=== PATIENT | female | born 1965 | race Two or more races ===

== ENCOUNTER → 2025-01-07 | Outpatient (CLI) | payer OTHER, SELFPAY ==
--- NOTE | 2025-01-07 08:00 | XR_ITS ---
Examination: Screening digital mammography, bilateral Computer aided detection 3-D breast Tomosynthesis, bilateral Date and time of exam: 01/07/2025, 7:36 AM Comparisons: January 2019 Indications: Screening Technique: Nonmagnified MLO, CC views of the breasts to been obtained, reconstructed from 3-D Tomosynthesis images. R2 computer aided detection program utilized for evaluation of suspicious masses and/or abnormal calcifications. 3-D Tomosynthesis images obtained. Technologist: Findings: The breasts are heterogeneously dense, which may obscure small masses. Focal asymmetry 12:00 right breast with associated architectural distortion. Asymmetry posterior outer left breast seen on the CC view at approximately the 3:00. Otherwise, no evidence of abnormal masses or suspicious calcifications. Impression: Right breast focal asymmetry as above. Left breast asymmetry as above. Spot compression views and possible ultrasound evaluation recommended. BI-RADS category 0: Incomplete assessment; need additional imaging evaluation
== END | disposition home or self-care (01) ==
LOC: CDIM 07:27
PROVIDERS: Referring Provider Physician Assistant Medical; Visit Provider Physician Assistant Medical
DX: Z12.31 Encounter for screening mammogram for malignant neoplasm of breast (principal); R92.8 Other abnormal and inconclusive findings on diagnostic imaging of breast; N64.89 Other specified disorders of breast
CPT/HCPCS: 77063; 77067

== ENCOUNTER → 2025-02-13 | Outpatient (CLI) | payer OTHER, SELFPAY ==
--- NOTE | 2025-02-13 13:00 | XR_ITS ---
Examination: Diagnostic digital mammography, bilateral Computer aided detection 3-D breast Tomosynthesis, bilateral Date and time of exam: February 13, 2025 1241 hours INDICATIONS: Mammogram January 07, 2025 suspicious focal asymmetry 12:00 position right breast, asymmetry posterior outer left breast Technique: Nonmagnified MLO, CC views of the breasts to been obtained, reconstructed from 3-D Tomosynthesis images. R2 computer aided detection program utilized for evaluation of suspicious masses and/or abnormal calcifications. 3-D Tomosynthesis images obtained. Findings: Pulmonary mass spiculated margins, 31 mm, 12:00 position right breast with satellite 8mm nodule 9 mm nodule outer left breast not clearly depicted on the corresponding MLO view Scattered areas of fibroglandular density Impression: BI-RADS Category 4: Suspicious for malignancy Suspicious mass 12:00 position right breast, suspicious solid nodule right breast Biopsy of these nodules is needed to exclude breast carcinoma Both of these nodules are amenable to ultrasound-guided breast biopsy, recommend bilateral breast sonography follow-up Recommend left breast sonography follow-up to further assess 9 mm nodule outer left breast on the current CC view.
== END | disposition home or self-care (01) ==
PROVIDERS: PCP Physician Assistant Medical; Referring Provider Physician Assistant Medical; Visit Provider Physician Assistant Medical
DX: R92.343 Mammographic extreme density, bilateral breasts (principal); N63.15 Unspecified lump in the right breast, overlapping quadrants; N63.10 Unspecified lump in the right breast, unspecified quadrant
CPT/HCPCS: 77062; 77066; G0279

== ENCOUNTER → 2025-03-10 | Outpatient (CLI) | payer OTHER, SELFPAY ==
--- NOTE | 2025-03-10 11:30 | XR_ITS ---
Examination: Breast ultrasound complete, bilateral Date and time of exam: March 10, 2025 1120 hours Comparison February 24, 2018 INDICATIONS: Bilateral breast pain 8 months Technique: Real-time grayscale ultrasonographic imaging bilateral breasts, including all 4 quadrants as well as nipple retroareolar and axillary regions. Findings: Sonographic images right breast 12:00 nodule taller than wide indistinct margins 17 x 12 x 12 mm Retroareolar nodule indistinct margins 7 x 6 x 13 mm Sonographic images left breast No cystic or solid mass IMPRESSION: BI-RADS Category 4: Suspicious for malignancy Suspicious nodules right breast 12:00 and retroareolar, biopsy both nodules is needed to exclude breast carcinoma, these nodules are amenable to ultrasound-guided breast biopsy for diagnosis
== END | disposition home or self-care (01) ==
LOC: CDIM 11:01
PROVIDERS: PCP Physician Assistant Medical; Referring Provider Physician Assistant Medical; Visit Provider Physician Assistant Medical
DX: R92.8 Other abnormal and inconclusive findings on diagnostic imaging of breast (principal); N63.15 Unspecified lump in the right breast, overlapping quadrants
CPT/HCPCS: 76641

== ENCOUNTER → 2025-04-01 | Outpatient (CLI) | payer OTHER, SELFPAY ==
[2025-03-30 15:24] LABS: Basophils % (Auto) 0 % (0-2.5); Eosinophils # (Auto) 0.1 Thou/mm3 (0.0-0.5); Eosinophils % (Auto) 2 % (0-10); Hematocrit 37.5 % (36.0-46.0); Hemoglobin 12.3 g/dL (12.0-16.0); Immature Granulocytes % (Auto) 0 % (0-0); Immature Granulocytes Auto 0.02 Thou/mm3 (0.00-0.00); Lymphocytes % (Auto) 30 % (10-50); Mean Corpuscular HGB Conc 32.8 g/dl (31.0-37.0); Mean Corpuscular Hemoglobin 29.2 pg (25.0-35.0); Mean Corpuscular Volume 89 fL (80-100); Monocytes # (Auto) 0.5 Thou/mm3 (0.0-0.8); Monocytes % (Auto) 8 % (0-12); Neutrophils # (Auto) 3.9 Thou/mm3 (1.8-7.7); Neutrophils % (Auto) 60 % (37-80); Nucleated Red Blood Cell % 0 /100 WBC (0); Platelet Count 212 Thou/mm3 (140-440); RDW Standard Deviation 42.4 fL (36.4-46.3); Red Blood Count 4.21 Miln/mm3 (4.00-5.20); White Blood Count 6.6 Thou/mm3 (3.6-11.0)
[2025-03-30 15:51] LABS: INR 0.9 (0.9-1.3); Partial Thromboplastin Time 25.9 Seconds (22.0-36.0); Prothrombin Time 10.2 Seconds (9.0-12.2)
--- NOTE | 2025-04-01 08:30 | XR_ITS ---
Examinations: Ultrasound-guided percutaneous breast biopsy, right breast 12:00 nodule Right breast sonography limited INDICATIONS: Right breast sonogram 06/10/2025 BI-RADS 4 suspicious nodule 12:00 position right breast. Exam date and time: April 01, 2025 0918 hours. Informed consent provided. Technique: A timeout was completed verifying correct patient, procedure, site, positioning, and special equipment if applicable Informed consent provided. The patient was placed in a supine position for the breast biopsy. Sonographic images of the breast were performed for localization of the suspicious nodule The patient's breast was prepped and draped in sterile fashion. Maximum sterile barrier technique, hand hygiene, ultrasound sterile technique 1% lidocaine was used to anesthetize the skin and breast adjacent to the suspicious nodule. Utilizing ultrasonographic guidance, 8 core biopsies were obtained of the suspicious nodule utilizing an 18-gauge BioPince needle. The specimens appears satisfactory. US guided breast biopsy marker placement. Estimated blood loss 3 cc. The patient tolerated the procedure well and there were no complications. Impression: Successful ultrasound-guided percutaneous breast biopsy, 12:00 nodule. Ultrasound guided breast biopsy marker placement.
--- NOTE | 2025-04-01 08:30 | XR_ITS ---
Examinations: Ultrasound-guided percutaneous breast biopsy, right breast retroareolar nodule Right breast sonography limited INDICATIONS: Right breast sonogram 06/10/2025 BI-RADS 4 suspicious nodule retroareolar region right breast. Exam date and time: April 01, 2025 0919 hours. Informed consent provided. Technique: A timeout was completed verifying correct patient, procedure, site, positioning, and special equipment if applicable Informed consent provided. The patient was placed in a supine position for the breast biopsy. Sonographic images of the breast were performed for localization of the suspicious nodule The patient's breast was prepped and draped in sterile fashion. Maximum sterile barrier technique, hand hygiene, ultrasound sterile technique 1% lidocaine was used to anesthetize the skin and breast adjacent to the suspicious nodule. Utilizing ultrasonographic guidance, 8 core biopsies were obtained of the suspicious nodule utilizing an 18-gauge BioPince needle. The specimens appears satisfactory. US guided breast biopsy marker placement. Estimated blood loss 3 cc. The patient tolerated the procedure well and there were no complications. Impression: Successful ultrasound-guided percutaneous breast biopsy, right breast retroareolar nodule. Ultrasound guided breast biopsy marker placement.
== END | disposition home or self-care (01) ==
LOC: SDIM 08:10
PROVIDERS: Radiology Diagnostic Radiology; PCP Physician Assistant Medical; Referring Provider Physician Assistant Medical; Visit Provider Physician Assistant Medical
DX: C50.011 Malignant neoplasm of nipple and areola, right female breast (principal); C50.811 Malignant neoplasm of overlapping sites of right female breast; Z17.0 Estrogen receptor positive status [ER+]; Z17.22 Progesterone receptor negative status; Z17.32 Human epidermal growth factor receptor 2 negative status; Z01.812 Encounter for preprocedural laboratory examination
CPT/HCPCS: 19083; 19084; 36415; 85025; 85610; 85730; A4648; A4649

== ENCOUNTER 2025-05-27 08:01 | Outpatient (RCR) | payer MEDICAID, SELFPAY ==
--- NOTE | 2025-05-27 09:32 | CTCCONSULT_ITS ---
[facility] [address] [place], [place] [address] Consultation Note Date: 05/27/2025 MR#: [id number] Name: LATISHA COWAN : 1965 Dx: C50.111 Malignant neoplasm of central portion of right female breast Referring physician. NIDHI Pate /[facility] Reason for consultation .Patient with recent diagnosis of right breast CA referred to the cancer treatment center. History of Present Illness: Patient is a 60-year-old lady felt lump in right breast and patient states that she already saw Dr. Dorman regarding surgery mammogram 01/07/2025 revealed asymmetry right breast 12:00. Ultrasound 03/10/2025 revealed suspicious nodules right breast at 12:00 and right retroareolar area, 17 x 12 x 12 mm and 7 x 6 x 13 mm respectively. Ultrasound-guided biopsy 04/01/2025 revealed invasive lobular carcinoma largest focus 0.8 cm 12:00 and in the right retroareolar area invasive lobular carcinoma largest focus 0.6 cm. ER positive CA negative HER2/sita negative Ki67 low at 5 to 8%. Patient has already seen Dr. Dorman general surgeon. Patient now referred to the cancer center. Past Medical History: Hypertension fatty liver history of valley fever Meds. Hydrochlorothiazide Allergies none to meds Social History: Patient currently unemployed last menses 2019 2 pregnancies 1 lives with adult offspring in [place]. Denies smoking drinking Family history. 1 sister at ovarian cancer age 60 Brother colon cancer Review of Systems: Has felt the breast lump sleep problem difficulty hearing anxiety Physical Exam: General: Well-appearing lady no acute distress HEENT: Atraumatic normocephalic extraocular is intact no oral lesion no cervical or cervical adenopathy CV: Breast not examined . Chest clear to auscultation heart regular rate and rhythm ABD: Soft no organomegaly or tenderness EXT: No signs of clubbing or edema Assessment:#1 Multicentric. lobular right breast CA at 12:00 and retroareolar area. ER positive CA negative HER2 negative Ki-67 5 to 8% #2. Has appointment with medical oncologist Dr. Marcus in a few days. #3. Has already seen Dr. Dorman general surgeon, regarding breast surgery #4. I gave patient follow-up after all the specialists seen patient for comprehensive recommendation of treatment plan. #5. Thank you very much for allowing us to evaluate and manage this patient. [facility] network: NIDHI Pate Electronically signed by: Jad Dwyer MD, ADDI 05/27/2025 9:29 AM
== END 2025-05-28 23:59 | disposition home or self-care (01) ==
LOC: SCTC 08:01
PROVIDERS: PCP Physician Assistant Medical; Referring Provider Physician Assistant Medical; Visit Provider Radiology Therapeutic Radiology
DX: C50.811 Malignant neoplasm of overlapping sites of right female breast (principal); C50.011 Malignant neoplasm of nipple and areola, right female breast; Z17.0 Estrogen receptor positive status [ER+]; Z17.22 Progesterone receptor negative status; Z17.32 Human epidermal growth factor receptor 2 negative status
CPT/HCPCS: 99213; G0463

== ENCOUNTER 2025-06-09 16:12 | Inpatient (IN) | payer MEDICAID, SELFPAY ==
--- NOTE | 2025-06-08 07:00 | EKG_ITS ---
[facility] Test Date: 2025-06-08 Pat Name: LATISHA COWAN Department: Room: - Gender: Female Cat Sitter: LALITO : 1965 Requested By: Rafael Crowder Order Number: [id number] Reading MD: Rafael Crowder Measurements Intervals Burns Rate: 63 P: 38 OH: 168 QRS: 8 QRSD: 101 T: 19 QT: 424 QTc: 437 Interpretive Statements SINUS RHYTHM LOW QRS VOLTAGE IN PRECORDIAL LEADS [QRS DEFLECTION < 1.0 mV IN CHEST LEADS] INCOMPLETE RIGHT BUNDLE BRANCH BLOCK [90+ ms QRS DURATION, TERMINAL R IN V1/V2, 40+ ms S IN I/aVL/V4/V5/V6] No previous ECG available for comparison /store/S0/[id number]/[id number].pdf
[2025-06-08 08:37] VITALS: BMI 41.6
[2025-06-08 09:31] LABS: Basophils # (Auto) 0.0 Thou/mm3 (0.0-0.2); Basophils % (Auto) 0 % (0-2.5); Eosinophils # (Auto) 0.2 Thou/mm3 (0.0-0.5); Eosinophils % (Auto) 2 % (0-10); Hematocrit 37.9 % (36.0-46.0); Hemoglobin 12.6 g/dL (12.0-16.0); Immature Granulocytes Auto 0.02 Thou/mm3 (0.00-0.00); Lymphocytes # (Auto) 2.1 Thou/mm3 (1.0-4.8); Lymphocytes % (Auto) 30 % (10-50); Mean Corpuscular HGB Conc 33.2 g/dl (31.0-37.0); Mean Corpuscular Hemoglobin 29.5 pg (25.0-35.0); Mean Corpuscular Volume 89 fL (80-100); Monocytes # (Auto) 0.5 Thou/mm3 (0.0-0.8); Monocytes % (Auto) 8 % (0-12); Neutrophils # (Auto) 4.1 Thou/mm3 (1.8-7.7); Neutrophils % (Auto) 59 % (37-80); Nucleated Red Blood Cell # 0.00 Thou/mm3 (0.00-0.00); Nucleated Red Blood Cell % 0 /100 WBC (0); Platelet Count 189 Thou/mm3 (140-440); RDW Standard Deviation 41.9 fL (36.4-46.3); Red Blood Count 4.27 Miln/mm3 (4.00-5.20); White Blood Count 6.9 Thou/mm3 (3.6-11.0)
[2025-06-08 09:38] LABS: Alanine Aminotransferase 47 U/L (10-49); Albumin, Serum 4.3 gm/dL (3.4-4.8); Albumin/Globulin Ratio 1.7 (1.2-2.2); Alkaline Phosphatase 99 U/L (46-116); Anion Gap 8 (7-16); Aspartate Amino Transferase 35 U/L (0-34); BUN/Creatinine Ratio 15 Ratio (12-20); Bilirubin,Total 0.4 mg/dL (0.3-1.2); Blood Urea Nitrogen 12 mg/dL (9-23); Calcium 9.8 mg/dL (8.3-10.6); Calcium (Corrected) 9.8 mg/dL (8.5-10.1); Carbon Dioxide 29.1 mMol/L (20.0-31.0); Chloride 105 mMol/L (98-107); Creatinine (Component) 0.8 mg/dL (0.6-1.3); Estimated Creatinine Clearance 87.5 mL/min (>60); Globulin 2.5 gm/dL (2.3-3.5); Glucose 99 mg/dL (74-106); Osmolality,Calculated 282 (275-295); Potassium 4.1 mMol/L (3.4-5.1); Sodium 142 mMol/L (136-145); Total Protein 6.8 gm/dL (5.7-8.2); eGFR > 60 See Note
[2025-06-08 11:16] LABS: INR 0.9 (0.9-1.3); Partial Thromboplastin Time 25.4 Seconds (22.0-36.0); Prothrombin Time 10.0 Seconds (9.0-12.2)
--- NOTE | 2025-06-08 14:41 | SUR.PREOP ---
Pt notified to come in tomorrow at 0630.
[2025-06-09] VITALS (17 sets, daily range): BP systolic 114–162; BP diastolic 55–82; PULSE 62–72; RESP 17–23; TEMP 36.1–36.7; O2SAT 91–98; BMI 43.9
[2025-06-09] MEDS: RINGERS LACTATED 1000 ML 1,000 ML 20 ML IV (07:28)
--- NOTE | 2025-06-09 09:00 | XR_ITS ---
Examination: Nuclear medicine [place] lymph node study Nuclear medicine lymph glands imaging Date and time: June 09, 2025 0900 hours INDICATIONS: Preop right breast lumpectomy 6 and lymph node dissection today TECHNIQUE AND FINDINGS: Informed consent provided. Timeout performed. Skin prepped over the right breast and sterile drape applied hand hygiene 1% lidocaine administered for local anesthesia subareolar Subareolar introduction 1.8 mCi technetium 99m filtered sulfur colloid No complications No bleeding No imaging obtained IMPRESSION: Successful sentinel lymph node study as above, right breast
--- NOTE | 2025-06-09 09:00 | XR_ITS ---
Examination: Ultrasound-guided needle localization right breast nodule 12:00 position, retroareolar position, right breast sonography limited Date and time: June 09, 2025 0927 hours INDICATIONS: Biopsy positive for carcinoma lesions right breast 12:00 and retroareolar April 01, 2025, preop surgical excision TECHNIQUE AND FINDINGS: Sonographic images right breast Skin prepped over the breast and sterile drape applied hand hygiene ultrasound sterile technique Informed consent provided. Timeout performed. 1% lidocaine administered for local anesthesia at both the 12:00 and retroareolar sites Utilizing ultrasonographic guidance 5 cm Kopan's needle was placed adjacent to the right breast 12:00 and right breast retroareolar lesions 1 cc methylene blue injected at both sites On both sides of acquired advanced and needles withdrawn Estimated blood loss 2 cc Patient stable condition at completion procedure is IMPRESSION: Successful ultrasound-guided needle localization right breast 12:00 and retroareolar nodules
--- NOTE | 2025-06-09 11:05 | ESHP_ITS ---
RE: LATISHA COWAN : 1965 DATE OF ADMISSION: 06/09/2025 DATE OF SURGERY: 06/09/2025 HISTORY OF PRESENT ILLNESS: This patient is a 60-year-old female who is scheduled for treatment of the right breast lobular carcinoma. The patient was in her usual health until a year ago when she noticed some fullness on the right breast on what she described as a lump. It became painful and the patient underwent biopsy of this right breast lesion. In the ultrasound, the patient was found to have 2 lumps, one at 12 o'clock position and the other one at retroareolar position. Both of these were biopsied and clipped by the radiologist. The report came back as infiltrating lobular carcinoma x2. The patient was seen in the clinic on 05/05/2025 for definitive treatment. The patient denies any history of breast cancer in the family. Her menstrual period stopped in 2020. PAST SURGICAL HISTORY: The patient's surgery revealed one section. PHYSICAL EXAMINATION: GENERAL: A female who speaks Tajik. She is obese and is about 5 feet 2 inches tall and weighing 236 pounds with a BMI of 43.2. VITAL SIGNS: Temperatures of 97.9, pulse 75, BP was 150/71. HEENT: Examination of her head normal. Eyes, ears, nose, and throat normal. CHEST: Good breath sounds. BREASTS: Palpation of the breast showed some fullness over the right side at the upper portion. These lumps were diffuse and not clear-cut and could not be defined by palpation. Right axilla was negative. Left breast appeared normal. IMAGING: I reviewed the mammogram and the ultrasound, which showed 2 lesions on the right breast. Biopsy of both the lesions showed infiltrating lobular carcinoma, which are hormone positive for both estrogen and progesterone. IMPRESSION: 1. Infiltrating lobular carcinoma of the right breast with multifocal. 2. Morbid obesity. 3. Hypertension. COURSE OF ACTION: I advised the patient that she has to undergo surgery to remove this lump and then being evaluated for radiation therapy. The patient's breast is fairly large and there will be considerable amount of breast left behind even after surgery. In addition to radiation therapy, the patient may even consider having chemotherapy if there are criteria that are met. The risks of the procedure including potential complications like hematoma and seroma and wound infection were explained to the patient. The patient also will undergo sentinel node biopsy to look for any involvement in the axilla and she is agreeable and will proceed with surgery today. DT: 09:49:49 TT: 11:03:00 Ref: [id number] - TID: [id number]
--- NOTE | 2025-06-09 11:58 | XR_ITS ---
Examination: Mammogram breast tissue specimen x2 TECHNIQUE: 2 mammographic breast tissue specimens obtained Date and time: June 09, 2025 1221 hours INDICATIONS: Postop surgical excision of BI-RADS 4 suspicious nodules 12:00 and retroareolar region right breast with pre-op needle localizations this morning FINDINGS: Breast tissue specimens demonstrate 2 separate breast markers at the site of the localized lesions with margins around these 2 breast markers IMPRESSION: Tissue specimens demonstrating both localized biopsy positive for carcinoma lesions with margins
--- NOTE | 2025-06-09 13:15 | SUR.PHASEI ---
pt received from OR in recovery bay 2. pt asleep but responds to voice, breathing unlabored on oxymask 10l. v/s stable. pt dressing to right breast cdi. allison drain in place. report received from Dr. Mcgovern and Amor MENDOZA.
[2025-06-09] MEDS: fentaNYL CIT INJ 50 mCg/ML AMP 2ML 25 MCG IVP ×3 (14:06→14:33)
[2025-06-09] MEDS: ONDANSETRON INJ 2 MG/ML INJ 2 ML 4 MG IVP (14:35)
--- NOTE | 2025-06-09 14:44 | SUR.PHASEII ---
pt able to tolerate oral fluids without difficulty swallowing or nausea/vomiting.
--- NOTE | 2025-06-09 16:10 | SUR.PHASEII ---
pt asleep but responds to voice, breathing unlabored on nc 2l. v/s stable. pt dressing to right breast cdi. allison drain emptied 30 cc. report called to Carrie MENDOZA. pt will be transferred to room at this time.
--- NOTE | 2025-06-09 17:52 | PD.SUROPNT ---
Date of Procedure 06/09/25 Pre Op Diagnosis Infiltrating lobular carcinoma of the right breast at 12 o'clock position and at retroareolar region Post Op Diagnosis Same Procedure Guidewire localization and partial mastectomy of the right breast with sentinel node dissection of the right axilla. Findings Patient was found to have 2 large lymph nodes and one of them were showing radioisotope uptake in the axilla. Procedure Description After the patient was sent to the x-ray suite guidewire localization was performed by Dr. Berry using ultrasound guidance. She also had a sentinel node injection performed by him. She was then brought to the operating room and was given endotracheal anesthesia. Right breast and axilla and right upper extremity were all prepped with ChloraPrep solution and draped in a sterile manner. Timeout was performed. I approached the right axilla first for sentinel node biopsy. Using a neoprobe I found some activity at the axilla and I made an incision for about 5 to 6 cm and explored the subcutaneous tissue. I was able to feel a large node measuring at least about 1.5 cm that was showing considerable technetium uptake. This was removed intact by clamping the surrounding structures and tying them with 3-0 chromic. Then another lymph node was also removed but it showed no radioactive isotope and therefore it turned out to be a nonsentinel lymph node. Then a diligent search was made for any additional node in the axilla and none was found. Then I closed the axilla in layers using 3-0 chromic sutures. Then the skin was infiltrated with local anesthesia with half percent Marcaine and then closed with 4-0 Monocryl subcuticular stitch. Then the right breast was approached. 2 guidewires were seen 1 at 12 o'clock position and another 1 in the retroareolar portion. I made a curved incision over the areola on the right breast and dissected out the subcutaneous tissue. Using the guidewire and methylene blue stained tissue I removed the entire upper quadrant of the right breast. I marked the sites with sutures using 3-0 silk for the medial margin and 3-0 Prolene for the superior margin as well as the anterior margin. I sent the specimen down for x-ray which showed that both the lesions have been removed intact and the clips that were used at the biopsy were easily seen in the specimen. There is also considerable amount of normal breast tissue surrounding the cancer which was shown as a dense area on the x-ray. Then bleeding points were controlled with cautery carefully but there was a large cavity. I closed some of the cavity with approximation of the subcutaneous tissue on the left #10 round Mario-Feldman drain and stitch to to the skin with 2-0 silk. At the end dressing was applied with Adaptic and fluff and compression with extra-large breast binder. Patient was returned to recovery room after stable surgical course. Anesthesia GETA and other (General LMA) Pathology / specimen Other (1. [place] lymph node, #2 nonsentinel lymph node, #3 breast cancer specimen with 2 guidewires) Estimated Blood Loss 200 Condition Stable Disposition PACU Surgeon Marii Newman MD Surgical Staff Operation Date: 06/09/25 09:45 Case Staff Anesthesiologist: Sandro Mcgovern RN First Assistant: Natalie Porter
[2025-06-10] VITALS: BP 158/72; RESP 18; TEMP 36.2; O2SAT 94
[2025-06-10 04:00] VITALS: BP 139/73; RESP 18; TEMP 36.2; O2SAT 94
[2025-06-10] MEDS: MORPHINE SULF INJ 10 MG/ML VIAL 5 MG IVP ×2 (05:42→09:54)
[2025-06-10] MEDS: ONDANSETRON INJ 2 MG/ML INJ 2 ML 4 MG IVP (05:43)
[2025-06-10 06:37] LABS: Basophils # (Auto) 0.0 Thou/mm3 (0.0-0.2); Basophils % (Auto) 0 % (0-2.5); Eosinophils # (Auto) 0.0 Thou/mm3 (0.0-0.5); Eosinophils % (Auto) 0 % (0-10); Hematocrit 35.7 % (36.0-46.0); Hemoglobin 11.9 g/dL (12.0-16.0); Immature Granulocytes Auto 0.07 Thou/mm3 (0.00-0.00); Lymphocytes # (Auto) 1.1 Thou/mm3 (1.0-4.8); Lymphocytes % (Auto) 9 % (10-50); Mean Corpuscular HGB Conc 33.3 g/dl (31.0-37.0); Mean Corpuscular Hemoglobin 29.8 pg (25.0-35.0); Mean Corpuscular Volume 89 fL (80-100); Monocytes # (Auto) 0.5 Thou/mm3 (0.0-0.8); Monocytes % (Auto) 4 % (0-12); Neutrophils # (Auto) 10.8 Thou/mm3 (1.8-7.7); Neutrophils % (Auto) 86 % (37-80); Nucleated Red Blood Cell # 0.00 Thou/mm3 (0.00-0.00); Nucleated Red Blood Cell % 0 /100 WBC (0); Platelet Count 186 Thou/mm3 (140-440); RDW Standard Deviation 42.8 fL (36.4-46.3); Red Blood Count 4.00 Miln/mm3 (4.00-5.20); White Blood Count 12.5 Thou/mm3 (3.6-11.0)
[2025-06-10 08:00] VITALS: BP 136/73; PULSE 65; RESP 17; TEMP 36.3; O2SAT 93
[2025-06-10 08:39] VITALS: RESP 18; O2SAT 96
[2025-06-10 12:00] VITALS: BP 130/57; PULSE 64; RESP 18; TEMP 36.6; O2SAT 93
--- NOTE | 2025-06-10 12:43 | PD.SURPROG ---
Documentation for date of: 06/10/25 Subjective Subjective Narrative: Patient is feeling better today with good pain control. She is draining minimal amount of fluid in the Mario-Feldman. Exam Vital Signs Temp Pulse Resp BP Pulse Ox O2 Del Method O2 Flow Rate 97.8 F 64 18 130/57 L 93 L Room Air 2 06/10/25 12:00 06/10/25 12:00 06/10/25 12:00 06/10/25 12:00 06/10/25 12:06/10/25 12:06/10/25 08:00 Her vital signs are normal Routine Chest/Breast/Axilla Exam Comments: The dressing is intact. Results Results: Laboratory Laboratory Narrative: Patient's laboratory workup showed stable hemoglobin and mild leukocytosis Assessment & Plan Assessment Additional comments: Impression: Stable postoperative course following partial mastectomy Plan Plan: Patient was kept here for the pain control during the night for overnight observation. Patient will be discharged today. PROCEDURES: Procedures Guidewire localization and partial mastectomy of the right breast with sentinel node dissection of the right axilla.
== END 2025-06-10 13:41 | disposition home or self-care (01) | DRG 363 ==
LOC: S3SX 16:59
PROVIDERS: Admitting Provider Surgery; PCP Physician Assistant Medical; Referring Provider Surgery; Visit Provider Surgery
PROC: 07B53ZX Excision of Right Axillary Lymphatic, Percutaneous Approach, Diagnostic (ICD-10-PCS; principal; 2025-06-09 09:30)
DX: C50.911 Malignant neoplasm of unspecified site of right female breast (principal); E66.01 Morbid (severe) obesity due to excess calories; I10 Essential (primary) hypertension; Z68.41 Body mass index [BMI] 40.0-44.9, adult
CPT/HCPCS: 36415; 76098; 80053; 85025; 85610; 85730; 93005; A4217; A4648; A4649; A9541; G0378; J0131; J1100; J1885; J2250; J2270; J2405; J2704; J3010; J3490; J7120

== ENCOUNTER 2025-06-11 08:53 | Outpatient (RCR) | payer MEDICAID, SELFPAY ==
--- NOTE | 2025-06-11 10:17 | CTCFLWUP_ITS ---
Patient: LATISHA COWAN : 1965 Page 2 of 4 FOLLOW UP NOTE DATE OF SERVICE: 06/11/2025 NAME: LATISHA COWAN ACCOUNT: [id number] : 1965 AGE: 60 INTERVAL HISTORY: Patient is new for right breast cancer .patient had lumpectomy . she still have drainage tubes. ONCOLOGY HISTORY: DIAGNOSIS: ?CloneDiagnosis? Malignant neoplasm of central portion of right female breast [ICD10] C50.111 DATE OF DIAGNOSIS: 04/01/2025 STAGE/TNM: TREATMENT HISTORY: Care?Plan Start?Date Cycle Day Intent HISTORY OF PRESENT ILLNESS: 60 yr old womrn with new left breats cancer. Lumpectomy report not awailable. Patient still have a draining tubes. Pain is tolerable. No signs of infection. OTHER MEDICAL HISTORY/CONDITIONS: Right breast invasive lobular carcinoma - dx 04/01/25 HTN ??-?1986 ?Clone Other Med Hx? FAMILY HISTORY: Sibling: Djcfzyf-dujjx-dl 60/s; sister cervical - dx 50's Cancer History:?Numerous paternal family members - unknown types mof cancer ?Clone Family Hx? 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 Tobacco?Use:?Denies ETOH?Use:?Denies Drug?Note:?Denies Social?History?Note:?Lives?with? 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 conrol medication x 20-25 yrs :?2 Live?Births:?1 Age?1st?:?21 Gynecological?Note?2:?1?miscarriage ?Clone CARDIOPULMONARY TECHNICIAN AND EEG TECH Hx? MEDICATIONS: 1. Arimidex - 1 mg 1 tab Daily 2. hydrochlorothiazide - As directed?[place] Meds? Medications Last Reconciled by Lexy Marlow RN on 06/11/2025 ALLERGIES: No Known Drug Allergies REVIEW OF SYSTEMS: A complete 14-point review of systems was performed and is negative except as noted in interval history. PHYSICAL EXAMINATION: VITAL SIGNS: Temperature?98.8, B/P?152/84, Height?62?inches, Oxygen?Saturation?93% Weight?240?lbs (Change?since?05/27/25:?7?lbs) PAIN: 0 - No pain ECOG Performance Status: 1 - Symptomatic; ambulatory; restricted in strenuous activity GENERAL APPEARANCE: Appears well, in no apparent distress, appropriately interactive. HEENT: Normocephalic, no temporal wasting, normal conjunctiva, no scleral icterus, normal hearing, lips without lesions, neck normal range of motion. CARDIOVASCULAR: Not assessed. PULMONARY: Normal respiratory effort, no respiratory distress or use of accessory muscles, speaking in full sentences, no tachypnea. EXTREMITIES: No pedal edema or cyanosis. SKIN: Normal skin appearance. NEUROLOGIC: Alert and oriented x4. PSHYCHIATRIC: Appropriate affect, mood normal, behavior normal, intact thought and speech. LABORATORY DATA: I have personally reviewed and interpreted each of the patient?s relevant lab tests, abnormal findings are below: Date 06/08/25 06/10/25 ??WHITE?BLOOD?COUNT?(Thou/mm3) 6.9 12.5?H ??RED?BLOOD?COUNT?(Miln/mm3) 4.27 4.00 ??HEMOGLOBIN?(gm/dl) 12.6 11.9?L ??HEMATOCRIT?(%) 37.9 35.7?L ??PLATELET?COUNT?(Thou/mm3) 189 186 ??NEUTROPHILS?%,?AUTO?(%) 59 86?H ??LYMPH?%,?AUTO?(%) 30 9?L ??NEUTROPHILS,?AUTO?(Thou/mm3) 4.1 10.8?H ??GLUCOSE,RANDOM?(mg/dL) 99 ? ??BLOOD?UREA?NITROGEN?(mg/dL) 12 ? ??CREATININE?(mg/dL) 0.80 ? ??SODIUM?(mmol/L) 142 ? ??POTASSIUM?(mmol/L) 4.1 ? ??CHLORIDE?(mmol/L) 105 ? ??CrCl?(CandG)?(ml/min) 124.77 ? ??AST/SGOT?(Unit/L) 35?H ? ??ALT/SGPT?(Unit/L) 47 ? ??ALKALINE?PHOSPHATASE?(Unit/L) 99 ? ??BILIRUBIN,?TOTAL?(mg/dL) 0.4 ? ??PROTEIN?TOTAL?(gm/dl) 6.8 ? ??ALBUMIN,?SERUM?(gm/dl) 4.3 ? ??GLOBULIN?(gm/dl) 2.5 ? ??ALBUMIN/GLOBULIN?RATIO 1.7 ? ??CALCIUM,?SERUM?(mg/dL) 9.8 ? ??CALCIUM?SERUM?(CORRECTED)?(mg/dL) 9.8 ? ASSESSMENT/PLAN: Right breast cancer s/p lumpectomy Likely stage I Will do Oncotype DX on breast cancer Advised to follow-up with surgeon Will start on Arimidex but advised to start taking it only after patient is well-healed and is mobilized back to normal Advised to walk every day 20 minutes 2-3 times and increase water intake Advised range of movement on the arms RTC in 4 weeks ORDERS: Order # Description [id number] MD Follow Up 4 Week + [id number] Comprehensive Metabolic Panel - 12 + CBC with Auto Diff [id number] MD Follow Up 4 Week [id number] [facility] Hereditary Cancer Test [id number] Oncotype Dx RETURN TO CLINIC: I reviewed the diagnosis, prognosis, and recommended treatment/procedure options with the patient (and/or their legal guest experience representative), including the potential benefits, risks, side effects and alternative therapies. We also discussed the option of no treatment and the possibility of clinical trial participation, if applicable. All questions were addressed, and they demonstrated understanding. They provided informed consent to proceed with the proposed plan of care. BILLING AND COMPLIANCE: I reviewed external records from providers outside my specialty as summarized above. I spent a total of 50 minutes on this patient?s care on the day of their visit excluding time spent related to any billed procedures. This time includes time spent with the patient as well as time spent documenting in the medical record, reviewing patients records and tests, obtaining history, placing orders, communicating with other healthcare professionals, counseling the patient, family or caregiver, and/or care coordination for the diagnoses above. Electronically Signed by: Vic Marcus MD T: 10:14 AM CC: PCP: Viridiana Nava Referring: Viridiana Nava This document was completed utilizing speech recognition software. Grammatical errors, random word insertions, pronoun errors, and incomplete sentences are an occasional consequence of this system due to software limitations, ambient noise, and hardware issues. Any formal questions or concerns about the content, text or information contained within the body of this dictation should be directly addressed to the provider for clarification.
== END 2025-06-28 23:59 | disposition home or self-care (01) ==
LOC: SCTC 08:53
PROVIDERS: PCP Physician Assistant Medical; Referring Provider Physician Assistant Medical; Visit Provider Internal Medicine Hematology & Oncology
DX: C50.111 Malignant neoplasm of central portion of right female breast (principal); C50.811 Malignant neoplasm of overlapping sites of right female breast; Z17.0 Estrogen receptor positive status [ER+]; Z17.22 Progesterone receptor negative status; Z17.32 Human epidermal growth factor receptor 2 negative status
CPT/HCPCS: 99213; G0463

== ENCOUNTER 2025-07-23 11:32 | Outpatient (RCR) | payer MEDICAID, SELFPAY ==
--- NOTE | 2025-07-08 08:46 | CTCFLWUP_ITS ---
[facility] [address] [place], [place] [address] FOLLOW-UP NOTE Date: 07/08/2025 MR#: [id number] Name: LATISHA COWAN : 1965 Dx: C50.111 Malignant neoplasm of central portion of right female breast Identification. Patient with invasive lobular right breast CA underwent partial mastectomy 06/09/2025. Specimen size contained 3.1 x 1.8 x 2.7 cm or T2 size 1 sentinel and 1 nonsentinel lymph nodes were negative for mets pT2N0. ER 3+ positive [place] negative HER2/sita negative Ki67 low 5 to 10% Oncotype Dx 17 recurrence score no chemo benefit for someone greater than 50. Patient has been prescribed Arimidex by Dr. Marcus. Medial surgical margin noted to be focally positive and all other surgical margins negative. Patient states that Dr. Dorman has scheduled for additional surgery 07/28/2025 to get clear margins. Unless total mastectomy performed patient will need to have radiation therapy to the residual right breast tissue. Side effects explained. I will see her back in 1 month. Electronically signed by: Jad Dwyer M.D. 07/08/2025 8:44 AM
--- NOTE | 2025-07-08 08:47 | CTCTXPLN_ITS ---
[facility] [address] [place], [place] [address] Physician Clinical Treatment Planning Note Date of Service: 07/08/2025 Name: LATISHA COWAN : 1965 The patient has agreed to proceed with Radiation therapy. Tests and supporting medical records were interpreted to assist in defining the tumor location and extent of disease. Further imaging will be necessary to contour and delineate the volume to which the XRT will be provided. A. Treatment Intent: Curative B. Modality: Mixed mode C. Requested Technique: 3D D. Treatment Site: Right breast E. Critical structures to be contoured on plan: F. In order to accomplish this plan, I am ordering/Prescribing the followin. Simulations (s) will be performed to accomplish a reproducible treatment position, to determine optimal treatment portals/beam arrangements, to design beam modifying devices and verify treatment portals on patient prior to the commencement of Radiation Therapy. Right breast 2. Devices; for immobilization and beam shaping: Vac-Angely 3. CT Guidance for placement of XRT gonzalez Scan area: 4. Portal images Frequency: 5. Invivo transit dose measurement once per week on all VMAT patients. 6. Special Physics Consult Requested for: 7. Other requests: G. Dose Objectives: Curative Electronically signed by: Jad Dwyer M.D. 07/08/2025 8:44 AM
--- NOTE | 2025-07-08 08:49 | CTCTXPLNST_ITS ---
Radiation Oncology Treatment Planning Sheet Name: LATISHA COWAN MR#: [id number] : 1965 Dx: C50.111 Malignant neoplasm of central portion of right female breast Date of Service: 07/08/2025 Account #: ?? Pt Treatment Intent: curative palliative other: Stage: Procedure CPT # Ordered Spec. Procedure 56525 Donato Complex (set-up) 15918 R breast/E boost 2 Donato Simple 07992 1 IMRT Plan 82749 MLC Devices VMAT 22534 Donato 3 D 66737 1 TRTMT dev Complex 42276 Vac-Angely/tangents/E boost 4 TRTMT dev simple 59472 1 Basic Matthew 54638 5 Special Dosimetry 69978 Spec Physics 06942 Port Films 17433 3 SRS Cranial/1FX 12702 SBR 5 FX or Less /ex: 5 = 5 fx 12931 IMRT Simple 96235 IMRT Complex 84912 IGRT 00771 Rad del com 6- 87689 20 Rad del com 09-16 85115 Cont Med Physics 22640 4 Treatment Planning 13705 1 Weekly Evaluation 60492 4 Rad del com 20 mev 50896 Special Port Plan 31762 TRTMT dev inter 71990 Isodose Complex 64448 Isodose simple 06953 Resp Motion Mgmt Simulation 66875 Placement of Fiducial Markers 02771 Electronically Signed By: Jad Dwyer MD, DABR 07/08/2025 8:47 AM
--- NOTE | 2025-07-19 23:42 | CTCFLWUP_ITS ---
Patient: LATISHA COWAN : 1965 Page 4 of 6 FOLLOW UP NOTE DATE OF SERVICE: 07/16/2025 NAME: LATISHA COWAN ACCOUNT: [id number] : 1965 AGE: 60 INTERVAL HISTORY: Patient is new for right breast cancer .patient had lumpectomy . she still have drainage tubes. Margins came nack positive and now scheduled for reexcision on 07/28/2025 ONCOLOGY HISTORY: DIAGNOSIS: Malignant neoplasm of central portion of right female breast [ICD10] C50.111 DATE OF DIAGNOSIS: 04/01/2025 STAGE/TNM: TREATMENT HISTORY: Care?Plan Start?Date Cycle Day Intent HISTORY OF PRESENT ILLNESS: 60 yr old womrn with new left breats cancer. Lumpectomy report not awailable. Patient still have a draining tubes. Pain is tolerable. No signs of infection. 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 conrol medication x 20-25 yrs :?2 Live?Births:?1 Age?1st?:?21 Gynecological?Note?2:?1?miscarriage MEDICATIONS: 1. Arimidex - 1 mg 1 tab Daily 2. hydrochlorothiazide - As directed 3. lactulose - 20 gram/30 mL 30 mL Daily as needed for contipation Medications Last Reconciled by Amina Stafford MA on 07/16/2025 ALLERGIES: No Known Drug Allergies REVIEW OF SYSTEMS: A complete 14-point review of systems was performed and is negative except as noted in interval history. PHYSICAL EXAMINATION: VITAL SIGNS: B/P?168/82, Oxygen?Saturation?96% Weight?243?lbs (Change?since?07/08/25:?0?lbs) PAIN: 0 - No pain ECOG Performance Status: 0 - Asymptomatic and fully active GENERAL APPEARANCE: Appears well, in no apparent distress, appropriately interactive. HEENT: Normocephalic, no temporal wasting, normal conjunctiva, no scleral icterus, normal hearing, lips without lesions, neck normal range of motion. CARDIOVASCULAR: Not assessed. PULMONARY: Normal respiratory effort, no respiratory distress or use of accessory muscles, speaking in full sentences, no tachypnea. EXTREMITIES: No pedal edema or cyanosis. SKIN: Normal skin appearance. NEUROLOGIC: Alert and oriented x4. PSHYCHIATRIC: Appropriate affect, mood normal, behavior normal, intact thought and speech. LABORATORY DATA: I have personally reviewed and interpreted each of the patient?s relevant lab tests, abnormal findings are below: Date 06/08/25 06/10/25 ??WHITE?BLOOD?COUNT?(Thou/mm3) 6.9 12.5?H ??RED?BLOOD?COUNT?(Miln/mm3) 4.27 4.00 ??HEMOGLOBIN?(gm/dl) 12.6 11.9?L ??HEMATOCRIT?(%) 37.9 35.7?L ??PLATELET?COUNT?(Thou/mm3) 189 186 ??NEUTROPHILS?%,?AUTO?(%) 59 86?H ??LYMPH?%,?AUTO?(%) 30 9?L ??NEUTROPHILS,?AUTO?(Thou/mm3) 4.1 10.8?H ??GLUCOSE,RANDOM?(mg/dL) 99 ? ??BLOOD?UREA?NITROGEN?(mg/dL) 12 ? ??CREATININE?(mg/dL) 0.80 ? ??SODIUM?(mmol/L) 142 ? ??POTASSIUM?(mmol/L) 4.1 ? ??CHLORIDE?(mmol/L) 105 ? ??CrCl?(CandG)?(ml/min) 124.77 ? ??AST/SGOT?(Unit/L) 35?H ? ??ALT/SGPT?(Unit/L) 47 ? ??ALKALINE?PHOSPHATASE?(Unit/L) 99 ? ??BILIRUBIN,?TOTAL?(mg/dL) 0.4 ? ??PROTEIN?TOTAL?(gm/dl) 6.8 ? ??ALBUMIN,?SERUM?(gm/dl) 4.3 ? ??GLOBULIN?(gm/dl) 2.5 ? ??ALBUMIN/GLOBULIN?RATIO 1.7 ? ??CALCIUM,?SERUM?(mg/dL) 9.8 ? ??CALCIUM?SERUM?(CORRECTED)?(mg/dL) 9.8 ? ASSESSMENT/PLAN: Right breast cancer s/p lumpectomy Likely stage I Oncotype DX score 17 distance recurrence risk less than 5% with antiendocrine therapy alone Advised to follow-up with surgeon Will start on Arimidex but advised to start taking it only after patient is well-healed and is mobilized back to normal Advised to walk every day 20 minutes 2-3 times and increase water intake Will refer to lymphedema clinic if needed Patient may need radiation depending on the final surgery No role of chemotherapy RTC in 2 months ORDERS: Order # Description [id number] Comprehensive Metabolic Panel - 12 + CBC with Auto Diff + CA 15-3 [id number] MD Follow Up 2 Months RETURN TO CLINIC: I reviewed the diagnosis, prognosis, and recommended treatment/procedure options with the patient (and/or their legal insurance follow up representative), including the potential benefits, risks, side effects and alternative therapies. We also discussed the option of no treatment and the possibility of clinical trial participation, if applicable. All questions were addressed, and they demonstrated understanding. They provided informed consent to proceed with the proposed plan of care. BILLING AND COMPLIANCE: I reviewed external records from providers outside my specialty as summarized above. I spent a total of 50 minutes on this patient?s care on the day of their visit excluding time spent related to any billed procedures. This time includes time spent with the patient as well as time spent documenting in the medical record, reviewing patients records and tests, obtaining history, placing orders, communicating with other healthcare professionals, counseling the patient, family or caregiver, and/or care coordination for the diagnoses above. Electronically Signed by: Vic Marcus MD T: 11:40 PM CC: Jad?Yuliya,? PCP: Jad Dwyer Referring: Viridiana Nava This document was completed utilizing speech recognition software. Grammatical errors, random word insertions, pronoun errors, and incomplete sentences are an occasional consequence of this system due to software limitations, ambient noise, and hardware issues. Any formal questions or concerns about the content, text or information contained within the body of this dictation should be directly addressed to the provider for clarification.
== END 2025-07-28 23:59 | disposition home or self-care (01) ==
LOC: SCTC 11:32
PROVIDERS: PCP Physician Assistant Medical; Referring Provider Physician Assistant Medical; Visit Provider Internal Medicine Hematology & Oncology
DX: C50.111 Malignant neoplasm of central portion of right female breast (principal); C50.811 Malignant neoplasm of overlapping sites of right female breast; Z17.0 Estrogen receptor positive status [ER+]; Z17.22 Progesterone receptor negative status; Z17.32 Human epidermal growth factor receptor 2 negative status; Z90.11 Acquired absence of right breast and nipple; Z79.811 Long term (current) use of aromatase inhibitors
CPT/HCPCS: 99213; Q3014; G0463

== ENCOUNTER 2025-08-19 08:46 | Outpatient (RCR) | payer MEDICAID, SELFPAY ==
--- NOTE | 2025-08-11 09:44 | CTCFLWUP_ITS ---
[facility] [address] [place], [place] [address] FOLLOW-UP NOTE Date: 08/11/2025 MR#: [id number] Name: LATISHA COWAN : 1965 Dx: C50.111 Malignant neoplasm of central portion of right female breast Identification. Patient with invasive lobular right breast CA underwent partial mastectomy 06/09/2025. Specimen size was 3.1 x 1.8 x 2 point centimeters or T2 size. 1 sentinel node and 1 nonsentinel nodes were negative for mets. Stage IIA pT2 N0 ER positive [place] negative HER2 negative Ki-67 low at 5 to 10%. Oncotype Dx 17 recurrence score No chemo benefit. Patient currently on Arimidex by Dr. Marcus. Medial surgical margin noted to be focally positive and all other surgical margins negative. Patient underwent wide excision performed by Dr. Dorman 07/28/2025. Result was residual invasive lobular carcinoma 2 foci 0.7 cm and 0.5 cm. Surgical margins were negative. As I see patient today she appears well, with the right breast surgery area appearing well-healed. Assessment #1 stage IIa pT2 N0 receptor positive HER2 negative Oncotype Dx 17 initial surgery right partial mastectomy performed 06/09/2025.. #2. Underwent reexcision 07/28/2025 with now negative margins. #3. Current on Arimidex prescribed by Dr. Marcus. #4. Postop XRT 3 weeks of 4005 cGy entire breast with boost E boost to primary site additional 1000 cGy will be planned for patient. Side effects explained consent signed. Cc: Dandy Dial MD [facility] Electronically signed by: Jad Dweyr M.D. 08/11/2025 9:42 AM Thank you
--- NOTE | 2025-08-11 09:45 | CTCTXPLN_ITS ---
[facility] [address] [place], [place] [address] Physician Clinical Treatment Planning Note Date of Service: 08/11/2025 Name: LATISHA COWAN : 1965 The patient has agreed to proceed with Radiation therapy. Tests and supporting medical records were interpreted to assist in defining the tumor location and extent of disease. Further imaging will be necessary to contour and delineate the volume to which the XRT will be provided. A. Treatment Intent: Curative B. Modality: Mix mode C. Requested Technique: 3D D. Treatment Site: Right breast E. Critical structures to be contoured on plan: F. In order to accomplish this plan, I am ordering/Prescribing the followin. Simulations (s) will be performed to accomplish a reproducible treatment position, to determine optimal treatment portals/beam arrangements, to design beam modifying devices and verify treatment portals on patient prior to the commencement of Radiation Therapy. Right breast 2. Devices; for immobilization and beam shaping: Vac-Angely 3. CT Guidance for placement of XRT gonzalez Scan area: 4. Portal images Frequency: 5. Invivo transit dose measurement once per week on all VMAT patients. 6. Special Physics Consult Requested for: 7. Other requests: G. Dose Objectives: Curative Electronically signed by: Jad Dwyer M.D. 08/11/2025 9:43 AM
--- NOTE | 2025-08-11 09:47 | CTCTXPLNST_ITS ---
Radiation Oncology Treatment Planning Sheet Name: LATISHA COWAN MR#: [id number] : 1965 Dx: C50.111 Malignant neoplasm of central portion of right female breast Date of Service: 08/11/2025 Account #: ?? Pt Treatment Intent: curative palliative other: Stage: Procedure CPT # Ordered Spec. Procedure 95740 Donato Complex (set-up) 64943 Right breast/E boost 2 Donato Simple 31927 1 IMRT Plan 75189 MLC Devices VMAT 65844 Donato 3 D 57949 1 TRTMT dev Complex 97456 Vac-Angely/2 gonzalez/E boost 4 TRTMT dev simple 48063 1 Basic Matthew 02823 5 Special Dosimetry 39420 Spec Physics 53033 Port Films 31996 4 SRS Cranial/1FX 13272 SBR 5 FX or Less /ex: 5 = 5 fx 80440 IMRT Simple 49393 IMRT Complex 42641 IGRT 55021 Rad del TrialBee 6-10 91001 Rad del TrialBee 11-19 24243 5005 20 Cont Med Physics 17401 4 Treatment Planning 17834 1 Weekly Evaluation 85154 4 Rad del com 20 mev 53127 Special Port Plan 09147 TRTMT dev inter 29454 Isodose Complex 58431 Isodose simple 02480 Resp Motion Mgmt Simulation 64559 Placement of Fiducial Markers 97984 Electronically Signed By: Jad Dwyer MD, DABR 08/11/2025 9:45 AM
== END 2025-08-28 23:59 | disposition home or self-care (01) ==
LOC: SCTC 08:46
PROVIDERS: PCP Physician Assistant Medical; Referring Provider Physician Assistant Medical; Visit Provider Radiology Therapeutic Radiology
DX: Z51.0 Encounter for antineoplastic radiation therapy (principal); C50.111 Malignant neoplasm of central portion of right female breast; C50.811 Malignant neoplasm of overlapping sites of right female breast; Z17.0 Estrogen receptor positive status [ER+]; Z17.22 Progesterone receptor negative status; Z17.32 Human epidermal growth factor receptor 2 negative status; Z90.11 Acquired absence of right breast and nipple
CPT/HCPCS: 77014; 77290; 77295; 77300; 77334; 99212; G0463

== ENCOUNTER 2025-09-23 10:41 | Outpatient (RCR) | payer MEDICAID, SELFPAY ==
--- NOTE | 2025-09-03 15:15 | CTCSNOTE_ITS ---
[facility] [address] [place], [place] [address] Simple Simulation Note Date: 08/31/2025 MR#: [id number] Name: LATISHA COWAN : 1965 [id number] Port was taken and the field size location and blocks were checked. (A) The port was noted to be in ideal position along with its blocks. ( Electronically signed by: Jad Dwyer MD, DABR 09/03/2025 3:13 PM
--- NOTE | 2025-09-15 16:30 | CTCFLWUP_ITS ---
Patient: LATISHA COWAN : 1965 Page 2 of 2 FOLLOW UP NOTE DATE OF SERVICE: 09/15/2025 NAME: LATISHA COWAN ACCOUNT: [id number] : 1965 AGE: 60 INTERVAL HISTORY: Patient is new for right breast cancer .patient had lumpectomy . she still have drainage tubes. Margins came nack positive and now scheduled for reexcision on 07/28/2025. Patient is doing well. No complains. Have 9 more treatment . ONCOLOGY HISTORY: DIAGNOSIS: Malignant neoplasm of central portion of right female breast [ICD10] C50.111 DATE OF DIAGNOSIS: 04/01/2025 STAGE/TNM: TREATMENT HISTORY: Care?Plan Start?Date Cycle Day Intent HISTORY OF PRESENT ILLNESS: 60 yr old womrn with new left breats cancer. Lumpectomy report not awailable. Patient still have a draining tubes. Pain is tolerable. No signs of infection. 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 Tobacco?Use:?Denies ETOH?Use:?Denies Drug?Note:?Denies Social?History?Note:?Lives?with? [employer] HISTORY: Menarche?-?Age:?13 Menopause:?2019 Hormone?Use:? conrol medication x 20-25 yrs :?2 Live?Births:?1 Age?1st?:?21 Gynecological?Note?2:?1?miscarriage MEDICATIONS: 1. Arimidex - 1 mg 1 tab Daily 2. hydrochlorothiazide - As directed 3. lactulose - 20 gram/30 mL 30 mL Daily as needed for contipation Medications Last Reconciled by Stfeany Melvin LVN on 09/07/2025 ALLERGIES: No Known Drug Allergies REVIEW OF SYSTEMS: A complete 14-point review of systems was performed and is negative except as noted in interval history. PHYSICAL EXAMINATION: VITAL SIGNS: PAIN: 0 - No pain ECOG Performance Status: 0 - Asymptomatic and fully active GENERAL APPEARANCE: Appears well, in no apparent distress, appropriately interactive. HEENT: Normocephalic, no temporal wasting, normal conjunctiva, no scleral icterus, normal hearing, lips without lesions, neck normal range of motion. CARDIOVASCULAR: Not assessed. PULMONARY: Normal respiratory effort, no respiratory distress or use of accessory muscles, speaking in full sentences, no tachypnea. EXTREMITIES: No pedal edema or cyanosis. SKIN: Normal skin appearance. NEUROLOGIC: Alert and oriented x4. PSHYCHIATRIC: Appropriate affect, mood normal, behavior normal, intact thought and speech. LABORATORY DATA: I have personally reviewed and interpreted each of the patient?s relevant lab tests, abnormal findings are below: Date 06/08/25 06/10/25 07/27/25 ??WHITE?BLOOD?COUNT?(Thou/mm3) 6.9 12.5?H 5.3 ??RED?BLOOD?COUNT?(Miln/mm3) 4.27 4.00 4.38 ??HEMOGLOBIN?(gm/dl) 12.6 11.9?L 12.9 ??HEMATOCRIT?(%) 37.9 35.7?L 39.1 ??PLATELET?COUNT?(Thou/mm3) 189 186 207 ??NEUTROPHILS?%,?AUTO?(%) 59 86?H 56 ??LYMPH?%,?AUTO?(%) 30 9?L 34 ??NEUTROPHILS,?AUTO?(Thou/mm3) 4.1 10.8?H 2.9 ??GLUCOSE,RANDOM?(mg/dL) ? ? 115?H ??BLOOD?UREA?NITROGEN?(mg/dL) ? ? 14 ??CREATININE?(mg/dL) ? ? 0.80 ??SODIUM?(mmol/L) ? ? 141 ??POTASSIUM?(mmol/L) ? ? 3.1?L ??CHLORIDE?(mmol/L) ? ? 104 ??CrCl?(CandG)?(ml/min) ? ? 89.16 ??AST/SGOT?(Unit/L) ? ? 53?H ??ALT/SGPT?(Unit/L) ? ? 65?H ??ALKALINE?PHOSPHATASE?(Unit/L) ? ? 104 ??BILIRUBIN,?TOTAL?(mg/dL) ? ? 0.6 ??PROTEIN?TOTAL?(gm/dl) ? ? 7.4 ??ALBUMIN,?SERUM?(gm/dl) ? ? 4.7 ??GLOBULIN?(gm/dl) ? ? 2.7 ??ALBUMIN/GLOBULIN?RATIO ? ? 1.7 ??CALCIUM,?SERUM?(mg/dL) ? ? 9.9 ??CALCIUM?SERUM?(CORRECTED)?(mg/dL) ? ? 9.9 ASSESSMENT/PLAN: Right breast cancer s/p lumpectomy Likely stage I Oncotype DX score 17 distance recurrence risk less than 5% with antiendocrine therapy alone Advised to follow-up with surgeon Will start on Arimidex but advised to start taking it only after patient is well-healed and is mobilized back to normal Advised to walk every day 20 minutes 2-3 times and increase water intake Will refer to lymphedema clinic if needed Patient is on radiation and doing well No role of chemotherapy Cont anstrazole for 7 years Calcium and VIT d3 RETURN TO CLINIC: I reviewed the diagnosis, prognosis, and recommended treatment/procedure options with the patient (and/or their legal entry level marketing representative), including the potential benefits, risks, side effects and alternative therapies. We also discussed the option of no treatment and the possibility of clinical trial participation, if applicable. All questions were addressed, and they demonstrated understanding. They provided informed consent to proceed with the proposed plan of care. BILLING AND COMPLIANCE: I reviewed external records from providers outside my specialty as summarized above. I spent a total of 50 minutes on this patient?s care on the day of their visit excluding time spent related to any billed procedures. This time includes time spent with the patient as well as time spent documenting in the medical record, reviewing patients records and tests, obtaining history, placing orders, communicating with other healthcare professionals, counseling the patient, family or caregiver, and/or care coordination for the diagnoses above. Electronically Signed by: Vic Marcus MD T: 4:27 PM CC: Jad?CIRA Dwyer PCP: Jad Dwyer Referring: Jad Dwyer This document was completed utilizing speech recognition software. Grammatical errors, random word insertions, pronoun errors, and incomplete sentences are an occasional consequence of this system due to software limitations, ambient noise, and hardware issues. Any formal questions or concerns about the content, text or information contained within the body of this dictation should be directly addressed to the provider for clarification.
== END 2025-09-27 23:59 | disposition home or self-care (01) ==
LOC: SCTC 10:41
PROVIDERS: PCP Family Medicine; Referring Provider Radiology Therapeutic Radiology; Visit Provider Internal Medicine Hematology & Oncology
DX: Z51.0 Encounter for antineoplastic radiation therapy (principal); C50.111 Malignant neoplasm of central portion of right female breast; C50.811 Malignant neoplasm of overlapping sites of right female breast; Z17.0 Estrogen receptor positive status [ER+]; Z17.22 Progesterone receptor negative status; Z17.32 Human epidermal growth factor receptor 2 negative status; Z90.11 Acquired absence of right breast and nipple; Z79.811 Long term (current) use of aromatase inhibitors
CPT/HCPCS: 77280; 77290; 77300; 77332; 77336; 77412; 77417; 99212; G0463

== ENCOUNTER 2025-10-14 09:53 | Outpatient (RCR) | payer MEDICAID, SELFPAY ==
--- NOTE | 2025-09-28 11:41 | CTCTRTNOTE_ITS ---
[facility] [address] [place], [place] [address] Weekly Management Date: 09/28/2025 ?? Name: LATISHA COWAN : 1965 A. Patient is currently at 4005 + 600 E boost cGy. B. Patient is tolerating treatment well. C. Discomfort in axillary area. Using cream... D. Resume radiation therapy. Electronically signed by: Jad Dwyer M.D. 09/28/2025 11:39 AM
== END 2025-10-28 23:59 | disposition home or self-care (01) ==
LOC: SCTC 09:53
PROVIDERS: PCP Student in an Organized Health Care Education/Training Program; Referring Provider Student in an Organized Health Care Education/Training Program; Visit Provider Radiology Therapeutic Radiology
DX: Z51.0 Encounter for antineoplastic radiation therapy (principal); C50.111 Malignant neoplasm of central portion of right female breast; C50.811 Malignant neoplasm of overlapping sites of right female breast; Z17.0 Estrogen receptor positive status [ER+]; Z17.22 Progesterone receptor negative status; Z17.32 Human epidermal growth factor receptor 2 negative status; Z90.11 Acquired absence of right breast and nipple; Z79.811 Long term (current) use of aromatase inhibitors
CPT/HCPCS: 77336; 77412; 99212; G0463